=== PATIENT | male | born 1975 | race Caucasian/White ===

== ENCOUNTER 2017-07-15 09:42 | Emergency (ER) | payer OTHER ==
[2017-07-15 10:08] VITALS: BP 135/88
[2017-07-15] MEDS ORDERED: Ibuprofen ADULT LIQ* 600 MG/30 ML UDC PO ONE (10:28)
--- NOTE | 2017-07-15 10:40 | UC ---
Lower Extremity/Ankle HPI - HPI Summary HPI Summary: PT STATES HE WAS CARRYING ABOUT 130#'S UP SOME STAIRS AND FELT A SUDDEN "POP" WITH SEVERE PAIN IN HIS RIGHT CALF. ONSET LAST PM. PT STATES HE IS NOT ABLE TOP PUT ANY WEIGHT ON HIS LEG. HE HAS BEEN LIMPING ON HIS TOES OF THAT LEG. - History of Current Complaint Chief Complaint: UCLowerExtremity Stated Complaint: RIGHT CALF COMPLAINT Time Seen by Provider: 07/15/17 10:19 Hx Obtained From: Patient, Family/E [employer] Onset/Duration: Sudden Onset Pain Intensity: 8 Aggravating Factor(s): Standing, Ambulation Alleviating Factor(s): Rest, Elevation, Ice Able to Bear Weight: No - Risk Factors Gout Risk Factors: Negative DVT Risk Factors: Negative Septic Arthritis Risk Factor: Negative - Allergies/Home Medications Allergies/Adverse Reactions: Allergies Allergy/AdvReac Type Severity Reaction Status Date / Time No Known Allergies Allergy Verified 07/15/17 10:07 Home Medications: Home Medications Acetaminophen [Acetaminophen Extra Strength] 500 mg PO DAILY 07/15/17 [History Confirmed 07/15/17] Modafinil TAB* [Provigil TAB*] 200 mg PO DAILY 07/15/17 [History Confirmed 07/15] buPROPion TAB* [Wellbutrin TAB*] 300 mg PO DAILY 07/15/17 [History Confirmed ] PMH/Surg Hx/FS Hx/Imm Hx Psychological History: Depression - Surgical History Surgical History: Yes Surgery Procedure, Year, and Place: appy 2005. bilateral carpal tunnel 2017 - Social History Occupation: Employed Full-time Lives: With Family Alcohol Use: None Substance Use Type: None Smoking Status (MU): Never Smoked Tobacco Type: eCigarettes - Immunization History Vaccination Up to Date: Yes Review of Systems Constitutional: Negative Skin: Negative Eyes: Negative ENT: Negative Respiratory: Negative Cardiovascular: Negative Gastrointestinal: Negative Genitourinary: Negative Motor: Other - R CALF PAIN/SWELLING Neurovascular: Negative Musculoskeletal: Negative Neurological: Negative Psychological: Negative Is Patient Immunocompromised?: No All Other Systems Reviewed And Are Negative: Yes Physical Exam Triage Information Reviewed: Yes Appearance: Well-Appearing Vital Signs: Initial Vital Signs Temp 99.3 F 07/15/17 10:03 Pulse 75 07/15/17 10:03 Resp 22 03/13/18 10:03 BP 135/88 07/15/17 10:03 Pulse Ox 99 07/15/17 10:03 Vital Signs Reviewed: Yes Eyes: Positive: Conjunctiva Clear ENT: Positive: Normal ENT inspection Neck exam: Normal Respiratory: Positive: Lungs clear, Normal breath sounds Cardiovascular: Positive: RRR, No Murmur Abdomen Description: Positive: Nontender, No Organomegaly, Soft Bowel Sounds: Positive: Present Musculoskeletal: Positive: Other: - RLE: hip, knee, achilles are atraumatic. calf is swollen and very tender over the medial gastrocnemius. unable to weight bear on rle due to calf pain. ankle to foot has full s/v/m function. Lower Extremity Course/Dx - Course Course Of Treatment: no concern for dvt or fx. exam c/w gastrocnemius mm tear- high grade due to pain, swelling and not able to weight bear. . Dr Jones agrees to see pt now. pt nsaid and crutches here. - Differential Dx/Diagnosis Provider Diagnoses: R medial gastrocnemius muscle tear Discharge - Discharge Plan Condition: Stable Disposition: HOME Patient Education Materials: Tendon Rupture (ED) Forms: *Work Release Referrals: Boogie Jones MD [Medical Doctor] - As Soon As Possible Additional Instructions: NO WEIGHT ON RIGHT LEG UNTIL CLEARED BY ORTHOPEDICS GO DIRECTLY TO [facility] FROM HERE
== END 2017-07-15 10:48 | disposition home or self-care (01) ==
LOC: EDBD → UCCORT 09:42
DX: S86.911A Strain of unspecified muscle(s) and tendon(s) at lower leg level, right leg, initial encounter (principal); X58.XXXA Exposure to other specified factors, initial encounter; Y93.89 Activity, other specified; Y92.9 Unspecified place or not applicable; F32.9 Major depressive disorder, single episode, unspecified
CPT/HCPCS: 99203; A9270-GY; G0463